=== PATIENT | male | born 1955 | race Caucasian/White ===

== ENCOUNTER 2018-11-29 21:20 | Emergency (ER) | payer OTHER ==
[2018-11-29] MEDS: DIAZEPAM 5 MG/ML SYG IV (22:59)
[2018-11-29] MEDS: KETOROLAC 15 MG INJ IV (23:00)
[2018-11-29] MEDS: SOD CHLORIDE 0.9% 1,000 ML IV (23:00)
[2018-11-29 23:14] LABS: ADD MAN DIFF? NO
[2018-11-29 23:17] LABS: WHITE BLOOD COUNT 8.8 10^3/ul (4.8-10.8)
[2018-11-29 23:17] LABS: BASOPHILS % 0.3 % (0.0-2.0); EOSINOPHILS # 0.2 10^3/ul (0.0-0.5); EOSINOPHILS % 1.7 % (0.0-7.0); HEMATOCRIT 32.7 % (42.0-52.0); HEMOGLOBIN 11.3 g/dl (14.0-18.0); LYMPHOCYTES # 2.1 10^3/ul (0.8-2.9); LYMPHOCYTES % 23.4 % (15.0-51.0); MEAN CORPUSCULAR HEMOGLOBIN 31.8 pg (29.0-33.0); MEAN CORPUSCULAR HGB CONC 34.6 g/dl (32.0-37.0); MEAN CORPUSCULAR VOLUME 92.1 fl (82.0-101.0); MEAN PLATELET VOLUME 9.6 fl (7.4-10.4); MONOCYTE # 0.8 10^3/ul (0.3-0.9); MONOCYTES % 9.6 % (0.0-11.0); NEUTROPHIL # 5.6 10^3/ul (1.6-7.5); NEUTROPHILS % 64.5 % (39.0-77.0); PLATELET COUNT 256 10^3/UL (140-415); RED BLOOD COUNT 3.55 10^6/ul (4.70-6.10); RED CELL DISTRIBUTION WIDTH 12.3 % (11.5-14.5)
[2018-11-29 23:36] LABS: ANION GAP 7 (5-13); BLOOD UREA NITROGEN 16 mg/dl (7-20); CALCIUM 9.1 mg/dl (8.4-10.2); CARBON DIOXIDE 30 mmol/L (21-31); CHLORIDE 96 mmol/L (97-110); CREATININE 0.84 mg/dl (0.61-1.24); Estimated GFR > 60 mL/min (>60); GLUCOSE 119 mg/dl (70-220); INR 0.91; POTASSIUM 3.3 mmol/L (3.5-5.1); PROTIME 12.4 Sec (11.9-14.9); SODIUM 133 mmol/L (135-144)
[2018-11-29 23:48] LABS: TROPONIN-I < 0.012 ng/ml (0.000-0.120)
[2018-11-30 00:39] LABS: ADD UMIC YES; UR ASCORBIC ACID NEGATIVE (NEGATIVE); UR BILIRUBIN (Dip) NEGATIVE (NEGATIVE); UR BLOOD (Dip) 2+ mg/dL (NEGATIVE); UR CLARITY CLEAR (CLEAR); UR COLOR STRAW (YELLOW); UR GLUCOSE (Dip) NEGATIVE (NEGATIVE); UR KETONES (Dip) NEGATIVE (NEGATIVE); UR LEUKOCYTE ESTERASE (Dip) NEGATIVE Leu/ul (NEGATIVE); UR NITRITE (Dip) NEGATIVE (NEGATIVE); UR RBC 15 /HPF (0-5); UR SPECIFIC GRAVITY (Dip) 1.004 (1.003-1.030); UR TOTAL PROTEIN (Dip) NEGATIVE (NEGATIVE); UR UROBILINOGEN (Dip) NEGATIVE (NEGATIVE); UR WBC 1 /HPF (0-5)
== END 2018-11-30 02:30 | disposition home or self-care (01) ==
LOC: E/R 11-30 02:30
DX: M62.838 Other muscle spasm (principal); R53.82 Chronic fatigue, unspecified; D64.9 Anemia, unspecified; R26.2 Difficulty in walking, not elsewhere classified; E87.6 Hypokalemia; E87.1 Hypo-osmolality and hyponatremia; H31.9 Unspecified disorder of choroid; R40.2142 Coma scale, eyes open, spontaneous, at arrival to emergency department; R40.2362 Coma scale, best motor response, obeys commands, at arrival to emergency department; R40.2252 Coma scale, best verbal response, oriented, at arrival to emergency department; F17.210 Nicotine dependence, cigarettes, uncomplicated; R93.0 Abnormal findings on diagnostic imaging of skull and head, not elsewhere classified; M79.605 Pain in left leg
CPT/HCPCS: 36415; 70450; 71045; 80048; 81001; 84484; 85025; 85610; 93005; 96374; 96375; 99285-25

== ENCOUNTER 2018-12-22 21:36 | Inpatient (IN) | payer OTHER ==
[2018-12-22] MEDS: SOD CHLORIDE 0.9% 500 ML IV (22:30)
[2018-12-22 22:54] LABS: ADD MAN DIFF? NO
[2018-12-22 22:58] LABS: BASOPHIL # 0.1 10^3/ul (0.0-0.1); BASOPHILS % 0.5 % (0.0-2.0); EOSINOPHILS # 0.2 10^3/ul (0.0-0.5); EOSINOPHILS % 2.3 % (0.0-7.0); HEMATOCRIT 33.8 % (42.0-52.0); HEMOGLOBIN 11.6 g/dl (14.0-18.0); LYMPHOCYTES # 2.5 10^3/ul (0.8-2.9); MEAN CORPUSCULAR HEMOGLOBIN 31.7 pg (29.0-33.0); MEAN CORPUSCULAR HGB CONC 34.3 g/dl (32.0-37.0); MEAN CORPUSCULAR VOLUME 92.3 fl (82.0-101.0); MEAN PLATELET VOLUME 9.2 fl (7.4-10.4); NEUTROPHIL # 6.1 10^3/ul (1.6-7.5); NEUTROPHILS % 61.8 % (39.0-77.0); PLATELET COUNT 239 10^3/UL (140-415); RED BLOOD COUNT 3.66 10^6/ul (4.70-6.10); RED CELL DISTRIBUTION WIDTH 12.4 % (11.5-14.5)
[2018-12-22 22:58] LABS: WHITE BLOOD COUNT 9.9 10^3/ul (4.8-10.8)
[2018-12-22 23:17] LABS: INR 0.89; PROTIME 12.2 Sec (11.9-14.9)
[2018-12-22 23:18] LABS: PARTIAL THROMBOPLASTIN TIME 36.1 Sec (23.0-35.0)
[2018-12-22 23:25] LABS: ANION GAP 11 (5-13); BLOOD UREA NITROGEN 7 mg/dl (7-20); CALCIUM 8.9 mg/dl (8.4-10.2); CARBON DIOXIDE 28 mmol/L (21-31); CHLORIDE 98 mmol/L (97-110); CREATININE 0.69 mg/dl (0.61-1.24); Estimated GFR > 60 mL/min (>60); GLUCOSE 104 mg/dl (70-220); POTASSIUM 3.4 mmol/L (3.5-5.1); SODIUM 137 mmol/L (135-144)
[2018-12-22 23:36] LABS: TROPONIN-I < 0.012 ng/ml (0.000-0.120)
[2018-12-23] MEDS: LORAZEPAM 2 MG INJ IV (03:10)
[2018-12-23] MEDS ORDERED: ONDANSETRON 4 MG INJ IV (14:30)
[2018-12-23] MEDS ORDERED: DOCUSATE SODIUM 100 MG CAP PO (14:30)
[2018-12-23] MEDS ORDERED: NACL 0.9% 3 ML SYG IV (14:30)
[2018-12-23] MEDS ORDERED: ACETAMINOPHEN 325 MG TAB PO (14:30)
[2018-12-23 18:41] LABS: CREATINE KINASE 451 IU/L (23-200)
[2018-12-23 18:54] LABS: CK INDEX 0.7; TROPONIN-I < 0.012 ng/ml (0.000-0.120)
[2018-12-23 18:56] LABS: CK-MB 3.34 ng/ml (0.0-2.4)
[2018-12-23] MEDS: HYDROCODONE/APAP (5/325) TAB PO (20:24)
[2018-12-23] MEDS: ATORVASTATIN 20 MG TAB PO (20:24)
[2018-12-23 22:20] LABS: CREATINE KINASE 492 IU/L (23-200)
[2018-12-23 22:33] LABS: CK INDEX 0.7; TROPONIN-I < 0.012 ng/ml (0.000-0.120)
[2018-12-23 22:34] LABS: CK-MB 3.67 ng/ml (0.0-2.4)
[2018-12-24 05:56] LABS: ADD MAN DIFF? NO
[2018-12-24 06:06] LABS: BASOPHILS % 0.4 % (0.0-2.0); EOSINOPHILS # 0.2 10^3/ul (0.0-0.5); EOSINOPHILS % 1.8 % (0.0-7.0); HEMOGLOBIN 12.1 g/dl (14.0-18.0); LYMPHOCYTES # 2.6 10^3/ul (0.8-2.9); LYMPHOCYTES % 23.1 % (15.0-51.0); MEAN CORPUSCULAR HEMOGLOBIN 30.9 pg (29.0-33.0); MEAN CORPUSCULAR HGB CONC 33.6 g/dl (32.0-37.0); MEAN CORPUSCULAR VOLUME 91.8 fl (82.0-101.0); MEAN PLATELET VOLUME 9.6 fl (7.4-10.4); NEUTROPHIL # 7.4 10^3/ul (1.6-7.5); NEUTROPHILS % 65.3 % (39.0-77.0); PLATELET COUNT 271 10^3/UL (140-415); RED BLOOD COUNT 3.92 10^6/ul (4.70-6.10); RED CELL DISTRIBUTION WIDTH 12.7 % (11.5-14.5)
[2018-12-24 06:06] LABS: WHITE BLOOD COUNT 11.3 10^3/ul (4.8-10.8)
[2018-12-24 06:29] LABS: ANION GAP 14 (5-13); BLOOD UREA NITROGEN 12 mg/dl (7-20); CALCIUM 9.1 mg/dl (8.4-10.2); CARBON DIOXIDE 30 mmol/L (21-31); CHLORIDE 95 mmol/L (97-110); CREATININE 0.74 mg/dl (0.61-1.24); Estimated GFR > 60 mL/min (>60); GLUCOSE 97 mg/dl (70-220); MAGNESIUM 1.9 mg/dl (1.7-2.5); PHOSPHORUS 4.6 mg/dl (2.5-4.9); SODIUM 139 mmol/L (135-144)
[2018-12-24] MEDS: ASPIRIN (EC) 81 MG TAB PO (08:24)
[2018-12-24] MEDS: ENOXAPARIN 40 MG/0.4 ML SYG SC (08:27)
[2018-12-24] MEDS: POTASSIUM CHLORIDE (SR) 20 MEQ TAB PO (14:13)
[2018-12-24] MEDS: HYDROCODONE/APAP (5/325) TAB PO ×2 (14:14→20:17)
[2018-12-24] MEDS: LORAZEPAM 2 MG INJ IV (16:21)
[2018-12-24] MEDS: SOD CHLORIDE 0.9% 1,000 ML IV (17:24)
[2018-12-24] MEDS: ATORVASTATIN 20 MG TAB PO (20:17)
[2018-12-25] MEDS: SOD CHLORIDE 0.9% 1,000 ML IV ×5 (00:20→22:16)
[2018-12-25 05:57] LABS: ANION GAP 9 (5-13); BLOOD UREA NITROGEN 16 mg/dl (7-20); CARBON DIOXIDE 29 mmol/L (21-31); CHLORIDE 101 mmol/L (97-110); CREATININE 0.78 mg/dl (0.61-1.24); Estimated GFR > 60 mL/min (>60); GLUCOSE 101 mg/dl (70-220); POTASSIUM 3.5 mmol/L (3.5-5.1); SODIUM 139 mmol/L (135-144)
[2018-12-25] MEDS ORDERED: CEFAZOLIN 1 GM INJ (07:00)
[2018-12-25] MEDS ORDERED: THROMBIN 5000 UNIT VIAL (07:15)
[2018-12-25] MEDS ORDERED: ONDANSETRON 4 MG INJ (07:39)
[2018-12-25] MEDS ORDERED: MIDAZOLAM 1 MG/ML 2 ML INJ (07:39)
[2018-12-25] MEDS ORDERED: PROPOFOL 20 ML ×2 (07:39→08:32)
[2018-12-25] MEDS ORDERED: METOCLOPRAMIDE 10 MG INJ (07:40)
[2018-12-25] MEDS ORDERED: FENTAnyl 50 MCG/ML VIAL (07:46)
[2018-12-25] MEDS ORDERED: HYDROmorphONE 2 MG/ML SYG (07:47)
[2018-12-25] MEDS ORDERED: EPHEDrine SULFATE 50 MG/5 ML SYG ×2 (08:18→08:32)
[2018-12-25] MEDS ORDERED: PHENYLephrine (100 MCG/ML) 10ML SYG (08:18)
[2018-12-25] MEDS ORDERED: ROCURONIUM 50 MG INJ (08:32)
[2018-12-25] MEDS ORDERED: SUCCINYLCHOLINE CHLORIDE 100 MG/5 ML SYG IV (08:32)
[2018-12-25] MEDS: RISPERIDONE 1 MG TAB PO (09:00)
[2018-12-25] MEDS ORDERED: NEOSTIGMINE 3 MG/3 ML SYRINGE (09:42)
[2018-12-25] MEDS ORDERED: GLYCOPYRROLATE 0.4 MG INJ (09:42)
[2018-12-25] MEDS: LIDOCAINE 1%/EPI (1:100,000) (MDV) 20 ML (09:54)
[2018-12-25] MEDS: THROMBIN 5000 UNIT VIAL (09:54)
[2018-12-25] MEDS: POLYMYXIN/BACITRACIN 1L IRRIG IRR (09:55)
[2018-12-25] MEDS ORDERED: DIPHENHYDRAMINE 25 MG CAP PO (10:00)
[2018-12-25] MEDS ORDERED: NALOXONE (0.4 MG/ML) INJ IV (10:00)
[2018-12-25] MEDS: POVIDONE IODINE 10% 28.4 GM OINT (10:15)
[2018-12-25 10:51] LABS: ADD UMIC YES; UR ASCORBIC ACID NEGATIVE (NEGATIVE); UR BILIRUBIN (Dip) NEGATIVE (NEGATIVE); UR BLOOD (Dip) 2+ mg/dL (NEGATIVE); UR CLARITY CLEAR (CLEAR); UR COLOR YELLOW (YELLOW); UR GLUCOSE (Dip) NEGATIVE (NEGATIVE); UR KETONES (Dip) NEGATIVE (NEGATIVE); UR LEUKOCYTE ESTERASE (Dip) NEGATIVE Leu/ul (NEGATIVE); UR MUCUS FEW /HPF (NONE SEEN); UR NITRITE (Dip) NEGATIVE (NEGATIVE); UR RBC 41 /HPF (0-5); UR SPECIFIC GRAVITY (Dip) 1.014 (1.003-1.030); UR TOTAL PROTEIN (Dip) 1+ mg/dl (NEGATIVE); UR UROBILINOGEN (Dip) NEGATIVE (NEGATIVE); UR WBC 4 /HPF (0-5)
[2018-12-25] MEDS ORDERED: ONDANSETRON 4 MG INJ IV (11:00)
[2018-12-25] MEDS ORDERED: HYDROmorphONE 1 MG/5 ML IV SYRINGE IV ×3 (11:00)
[2018-12-25] MEDS ORDERED: MEPERIDINE 25 MG INJ IV (11:00)
[2018-12-25] MEDS ORDERED: DIPHENHYDRAMINE 50 MG INJ IV (11:00)
[2018-12-25] MEDS: CEFAZOLIN 1 GM/50 ML (PMX) 50 ML IVPB ×2 (11:01→20:23)
[2018-12-25] MEDS: HYDROmorphONE 0.2 MG/ML PCA IV (11:10)
[2018-12-25] MEDS: DOCUSATE SODIUM 100 MG CAP PO (20:23)
[2018-12-25] MEDS: ATORVASTATIN 20 MG TAB PO (20:23)
[2018-12-26] MEDS: CEFAZOLIN 1 GM/50 ML (PMX) 50 ML IVPB (03:25)
[2018-12-26 05:21] LABS: ADD MAN DIFF? NO
[2018-12-26] MEDS: PANTOPRAZOLE 40 MG INJ IV (05:23)
[2018-12-26 05:32] LABS: WHITE BLOOD COUNT 13.4 10^3/ul (4.8-10.8)
[2018-12-26 05:32] LABS: BASOPHILS % 0.2 % (0.0-2.0); EOSINOPHILS % 0.3 % (0.0-7.0); HEMATOCRIT 33.1 % (42.0-52.0); HEMOGLOBIN 11.2 g/dl (14.0-18.0); LYMPHOCYTES # 1.3 10^3/ul (0.8-2.9); LYMPHOCYTES % 9.9 % (15.0-51.0); MEAN CORPUSCULAR HEMOGLOBIN 31.5 pg (29.0-33.0); MEAN CORPUSCULAR HGB CONC 33.8 g/dl (32.0-37.0); MEAN CORPUSCULAR VOLUME 93.2 fl (82.0-101.0); MEAN PLATELET VOLUME 9.1 fl (7.4-10.4); MONOCYTE # 1.4 10^3/ul (0.3-0.9); MONOCYTES % 10.7 % (0.0-11.0); NEUTROPHIL # 10.5 10^3/ul (1.6-7.5); NEUTROPHILS % 78.4 % (39.0-77.0); PLATELET COUNT 209 10^3/UL (140-415); RED BLOOD COUNT 3.55 10^6/ul (4.70-6.10); RED CELL DISTRIBUTION WIDTH 12.2 % (11.5-14.5)
[2018-12-26 05:45] LABS: MAGNESIUM 1.5 mg/dl (1.7-2.5)
[2018-12-26 06:02] LABS: ANION GAP 11 (5-13); BLOOD UREA NITROGEN 9 mg/dl (7-20); CALCIUM 8.5 mg/dl (8.4-10.2); CARBON DIOXIDE 32 mmol/L (21-31); CHLORIDE 91 mmol/L (97-110); CREATININE 0.65 mg/dl (0.61-1.24); Estimated GFR > 60 mL/min (>60); GLUCOSE 117 mg/dl (70-220); POTASSIUM 3.1 mmol/L (3.5-5.1); SODIUM 134 mmol/L (135-144)
[2018-12-26] MEDS: SOD CHLORIDE 0.9% 1,000 ML IV ×2 (06:30→08:53)
[2018-12-26] MEDS: DOCUSATE SODIUM 100 MG CAP PO ×2 (08:50→20:36)
[2018-12-26] MEDS: RISPERIDONE 1 MG TAB PO (08:51)
[2018-12-26] MEDS: MAGNESIUM SULFATE 3 GM in DEXTROSE 5% 100 ML IVPB (11:52)
[2018-12-26] MEDS: POTASSIUM CHLORIDE (SR) 20 MEQ TAB PO (11:52)
[2018-12-26] MEDS: ACETAMINOPHEN 325 MG TAB PO (16:22)
[2018-12-26] MEDS: OXYCODONE/ACETAMINOPHEN (5/325) TAB PO (17:52)
[2018-12-26] MEDS: ZOLPIDEM 5 MG TAB PO (20:36)
[2018-12-26] MEDS: ATORVASTATIN 20 MG TAB PO (20:36)
[2018-12-27] MEDS: PANTOPRAZOLE (EC) 40 MG TAB PO (05:44)
[2018-12-27] MEDS: OXYCODONE/ACETAMINOPHEN (5/325) TAB PO (05:44)
[2018-12-27 06:02] LABS: WHITE BLOOD COUNT 13.1 10^3/ul (4.8-10.8)
[2018-12-27 06:02] LABS: ADD MAN DIFF? NO; BASOPHILS % 0.2 % (0.0-2.0); EOSINOPHILS # 0.1 10^3/ul (0.0-0.5); EOSINOPHILS % 0.8 % (0.0-7.0); HEMATOCRIT 31.2 % (42.0-52.0); HEMOGLOBIN 10.8 g/dl (14.0-18.0); LYMPHOCYTES # 1.5 10^3/ul (0.8-2.9); LYMPHOCYTES % 11.3 % (15.0-51.0); MEAN CORPUSCULAR HEMOGLOBIN 31.8 pg (29.0-33.0); MEAN CORPUSCULAR HGB CONC 34.6 g/dl (32.0-37.0); MEAN CORPUSCULAR VOLUME 91.8 fl (82.0-101.0); MEAN PLATELET VOLUME 9.7 fl (7.4-10.4); MONOCYTE # 1.5 10^3/ul (0.3-0.9); MONOCYTES % 11.1 % (0.0-11.0); NEUTROPHIL # 9.9 10^3/ul (1.6-7.5); NEUTROPHILS % 76.1 % (39.0-77.0); PLATELET COUNT 193 10^3/UL (140-415); RED CELL DISTRIBUTION WIDTH 12.4 % (11.5-14.5)
[2018-12-27 06:39] LABS: ANION GAP 7 (5-13); BLOOD UREA NITROGEN 13 mg/dl (7-20); CALCIUM 8.6 mg/dl (8.4-10.2); CARBON DIOXIDE 31 mmol/L (21-31); CHLORIDE 93 mmol/L (97-110); CREATININE 0.79 mg/dl (0.61-1.24); Estimated GFR > 60 mL/min (>60); GLUCOSE 127 mg/dl (70-220); POTASSIUM 3.5 mmol/L (3.5-5.1); SODIUM 131 mmol/L (135-144)
[2018-12-27] MEDS: HYDROCODONE/APAP (5/325) TAB PO (07:00)
[2018-12-27] MEDS: RISPERIDONE 1 MG TAB PO (09:52)
[2018-12-27] MEDS: DOCUSATE SODIUM 100 MG CAP PO ×2 (09:52→20:45)
[2018-12-27] MEDS: POLYETHYLENE GLYCOL 17 GM PACKET PO (18:38)
[2018-12-27] MEDS: ATORVASTATIN 20 MG TAB PO (20:46)
[2018-12-28 05:13] LABS: ADD MAN DIFF? NO; BASOPHILS % 0.2 % (0.0-2.0); EOSINOPHILS # 0.1 10^3/ul (0.0-0.5); EOSINOPHILS % 1.2 % (0.0-7.0); HEMATOCRIT 29.1 % (42.0-52.0); HEMOGLOBIN 10.1 g/dl (14.0-18.0); LYMPHOCYTES # 1.5 10^3/ul (0.8-2.9); LYMPHOCYTES % 14.4 % (15.0-51.0); MEAN CORPUSCULAR HEMOGLOBIN 31.9 pg (29.0-33.0); MEAN CORPUSCULAR HGB CONC 34.7 g/dl (32.0-37.0); MEAN CORPUSCULAR VOLUME 91.8 fl (82.0-101.0); MEAN PLATELET VOLUME 9.4 fl (7.4-10.4); MONOCYTE # 1.2 10^3/ul (0.3-0.9); MONOCYTES % 11.6 % (0.0-11.0); NEUTROPHIL # 7.5 10^3/ul (1.6-7.5); NEUTROPHILS % 72.2 % (39.0-77.0); PLATELET COUNT 194 10^3/UL (140-415); RED BLOOD COUNT 3.17 10^6/ul (4.70-6.10); RED CELL DISTRIBUTION WIDTH 12.3 % (11.5-14.5)
[2018-12-28 05:13] LABS: WHITE BLOOD COUNT 10.4 10^3/ul (4.8-10.8)
[2018-12-28 05:32] LABS: ANION GAP 7 (5-13); BLOOD UREA NITROGEN 16 mg/dl (7-20); CALCIUM 8.3 mg/dl (8.4-10.2); CARBON DIOXIDE 30 mmol/L (21-31); CHLORIDE 94 mmol/L (97-110); CREATININE 0.72 mg/dl (0.61-1.24); Estimated GFR > 60 mL/min (>60); GLUCOSE 135 mg/dl (70-220); POTASSIUM 3.7 mmol/L (3.5-5.1); SODIUM 131 mmol/L (135-144)
[2018-12-28] MEDS: PANTOPRAZOLE (EC) 40 MG TAB PO (06:10)
[2018-12-28] MEDS: DOCUSATE SODIUM 100 MG CAP PO ×2 (08:49→20:14)
[2018-12-28] MEDS: RISPERIDONE 1 MG TAB PO (08:50)
[2018-12-28] MEDS: POLYETHYLENE GLYCOL 17 GM PACKET PO (08:51)
[2018-12-28] MEDS: ENOXAPARIN 40 MG/0.4 ML SYG SC (13:15)
[2018-12-28] MEDS ORDERED: BISACODYL 10 MG SUPP PR (15:30)
[2018-12-28 16:42] LABS: SODIUM,URINE RANDOM 41 mmol/L (30-90)
[2018-12-28 17:32] LABS: OSMOLALITY,URINE 277 mOsm/kg (250-1200)
[2018-12-28] MEDS: ATORVASTATIN 20 MG TAB PO (20:14)
[2018-12-29 05:18] LABS: ADD MAN DIFF? NO
[2018-12-29 05:37] LABS: WHITE BLOOD COUNT 10.3 10^3/ul (4.8-10.8)
[2018-12-29 05:37] LABS: BASOPHILS % 0.3 % (0.0-2.0); EOSINOPHILS # 0.1 10^3/ul (0.0-0.5); EOSINOPHILS % 1.3 % (0.0-7.0); HEMATOCRIT 29.4 % (42.0-52.0); HEMOGLOBIN 10.1 g/dl (14.0-18.0); LYMPHOCYTES # 1.9 10^3/ul (0.8-2.9); LYMPHOCYTES % 18.2 % (15.0-51.0); MEAN CORPUSCULAR HEMOGLOBIN 31.5 pg (29.0-33.0); MEAN CORPUSCULAR HGB CONC 34.4 g/dl (32.0-37.0); MEAN CORPUSCULAR VOLUME 91.6 fl (82.0-101.0); MEAN PLATELET VOLUME 9.8 fl (7.4-10.4); MONOCYTE # 1.2 10^3/ul (0.3-0.9); MONOCYTES % 11.5 % (0.0-11.0); NEUTROPHILS % 68.3 % (39.0-77.0); PLATELET COUNT 231 10^3/UL (140-415); RED BLOOD COUNT 3.21 10^6/ul (4.70-6.10); RED CELL DISTRIBUTION WIDTH 12.1 % (11.5-14.5)
[2018-12-29] MEDS: PANTOPRAZOLE (EC) 40 MG TAB PO (05:58)
[2018-12-29 06:03] LABS: ANION GAP 11 (5-13); BLOOD UREA NITROGEN 14 mg/dl (7-20); CALCIUM 8.6 mg/dl (8.4-10.2); CARBON DIOXIDE 31 mmol/L (21-31); CHLORIDE 92 mmol/L (97-110); CREATININE 0.71 mg/dl (0.61-1.24); Estimated GFR > 60 mL/min (>60); GLUCOSE 121 mg/dl (70-220); POTASSIUM 3.6 mmol/L (3.5-5.1); SODIUM 134 mmol/L (135-144)
[2018-12-29] MEDS: RISPERIDONE 1 MG TAB PO (09:55)
[2018-12-29] MEDS: DOCUSATE SODIUM 100 MG CAP PO ×2 (09:55→21:00)
[2018-12-29] MEDS: ENOXAPARIN 40 MG/0.4 ML SYG SC (09:57)
[2018-12-29] MEDS: ATORVASTATIN 20 MG TAB PO (21:00)
[2018-12-30] MEDS: PANTOPRAZOLE (EC) 40 MG TAB PO (05:34)
[2018-12-30] MEDS: DOCUSATE SODIUM 100 MG CAP PO (09:43)
[2018-12-30] MEDS: RISPERIDONE 1 MG TAB PO (09:43)
[2018-12-30] MEDS: ENOXAPARIN 40 MG/0.4 ML SYG SC (09:45)
== END 2018-12-30 19:55 | DRG 519 ==
LOC: E/R 21:36 → MS1 12-29 17:21 → 2NE 12-23 02:46 → MS1 12-25 10:50 → 2NE 12-23 19:52
PROC: 00NW0ZZ Release Cervical Spinal Cord, Open Approach (ICD-10-PCS; principal; 2018-12-25 07:30)
DX: M47.12 Other spondylosis with myelopathy, cervical region (principal); E87.1 Hypo-osmolality and hyponatremia; F20.9 Schizophrenia, unspecified; I10 Essential (primary) hypertension; E78.5 Hyperlipidemia, unspecified; E87.6 Hypokalemia; R26.89 Other abnormalities of gait and mobility; R31.9 Hematuria, unspecified
CPT/HCPCS: 70450; 71045; 72020; 72125; 72141; 72146; 72148; 80048; 81001; 82550; 82553; 83735; 83935; 84100; 84300; 84484; 85025; 85610; 85730; 86850; 86900; 86901; 87086; 88304; 88311; 93005; 93306; 93880; 97110; 97116; 97162; 97164; 97167; 97530; 97535; 99285-25